=== PATIENT | female | born 1995 | race Caucasian/White ===

== ENCOUNTER 2018-09-17 16:26 | Emergency (ER) | payer MEDICAID ==
[~2018-09-17] VITALS: Ht 154.9 cm; Wt 97.5 kg
[2018-09-17 16:48] VITALS: BP 112/82
--- NOTE | 2018-09-17 16:50 | Emergency Room Report ---
History of Present Illness General Chief Complaint: Upper Respiratory Illness Present Illness HPI 23-year-old female patient presents the ER with multiple complaints. Complaining of cough with sputum. Denies chest pain or shortness of breath. Reports history of asthma, states has not had to use asthma inhaler. Reports is been taking Sudafed one time for relief of symptoms. Denies recent travel outside the country. Denies hemoptysis. Denies calf pain. Denies history of heart disease or heart attack. Also complaining of possible bug bites on legs and inguinal region. States is been present for the past several days. Did not see bug. Reports mild drainage occurred at the left inguinal region. Denies bleeding. Reports pain and pruritus at site of bug bites. Denies other aggravating or relieving factors. Reports history of smoking cigarettes and marijuana, denies IV drug use. Allergies: Coded Allergies: CEFIXIME (Verified Allergy, Severe, Hives, 09/17/18) Patient History Past Medical History: see triage record Last Menstrual Period: 2 weeks Now: No Reviewed Nursing Documentation: PMH: Agreed; PSxH: Agreed Review of Systems All Other Systems: negative except mentioned in HPI Physical Exam Vital Signs Date Time Temp Pulse Resp B/P (MAP) Pulse Ox O2 Delivery O2 Flow Rate FiO2 09/17/18 16:28 98.2 84 18 112/82 95 Room Air Sp02 EP Interpretation: reviewed, normal General Appearance: well appearing, no apparent distress, alert, GCS 15, non- toxic Head: normocephalic, atraumatic Eyes: bilateral eye normal inspection, bilateral eye PERRL ENT: hearing grossly normal, normal pharynx, no angioedema, normal voice, TMs + canals normal, uvula midline, moist mucus membranes Neck: full range of motion, no meningismus, no bony tend Respiratory: lungs clear, normal breath sounds, no rhonchi, no respiratory distress, no accessory muscle use, no wheezing, speaking full sentences Cardiovascular #1: regular rate, rhythm, no edema Musculoskeletal: back normal, digits/nails normal, gait/station normal, normal range of motion, non-tender Neurologic: alert, oriented x3, responsive, motor strength/tone normal, sensory intact Psychiatric: mood/affect normal Skin: other - Small macules with mild surrounding erythema, no edema, no fluctuance, induration, no red streaking, no drainage, scabbing and crusting noted, excoriations noted Medical Decision Making PA Attestation Dr. Bauer is my supervising Physician whom patient management has been discussed with. Diagnostic Impression: Primary Impression: Upper respiratory infection Additional Impressions: Abscess Cellulitis ER Course Pt. presents to the ED c/o bug bite and cough. Ddx considered but are not limited to atopic dermatitis, bug bite, urticaria, allergic reaction, influenza, viral URI, pneumonia, strep throat, rhinitis, sinusitis, otitis media, otitis externa. Vital signs: are WNL, pt. is afebrile ER COURSE: Lungs clear to auscultation, no wheezes, rhonci or rales. patient afebrile. Does not require breathing treatment at this time. Advised to use inhaler if breathing symptoms arise. CXR shows no acute disease per the preliminary reading, no consolidation consistent with pneumonia, does not require antibiotics at this time. Likely viral etiology of symptoms. Advised patient against smoking and drug use. Symptomatic treatment. drink plenty of fluids. Salt water gargles for sore throat. Followup with PCP for further treatment and/or referral as needed. Physical exam consistent with localized infection secondary to likely bug bites. Will provide patient with antibiotics to cover for infection. Low suspicion for scabies. Multiple bone metastases noted, largest in left inguinal thigh, small amount of induration noted, does not require I&D at this time, will treat with outpatient therapy. Patient reports previously drained at home, do not believe patient would benefit from I&D in the ER, advised patient on warm compresses, follow-up in 2-3 days for wound check. Do not scratch or itch. Will provide topical steroid to help with itching symptoms. Do not scratch, apply cool compresses to affected area. Take Claritin during the day and Benadryl at night for itching symptoms. Followup with PCP and request referral to derm. ER precautions given. DISCHARGE: At this time pt. is stable for d/c to home. Patient resting comfortably, in no acute distress, nontoxic appearing. Care plan and follow up instructions have been discussed with the patient prior to discharge. Patient provided with printed patient care instructions, and any necessary prescriptions. Patient instructed to follow-up with primary care provider in 3 - 5 days. Patient questions asked and answered. Patient reports understanding and agreement to treatment plan. ER precautions given. Patient instructed to return to ER immediately for any new or worsening of symptoms including but not limited to increasing SOB, persistent fever. - Please note that this Emergency Department Report was dictated using [employer] and receiving associate technology software, occasionally this can lead to erroneous entry secondary to interpretation by the dictation equipment. Chest X-Ray Diagnostic Results Chest X-Ray Diagnostic Results : Chest X-Ray Ordered: Yes # of Views/Limited/Complete: 1 View Indication: Chest Pain EP Interpretation: Yes PA Xray: Interpretation reviewed, by supervising MD, and agrees with findings. Interpretation: no consolidation, no effusion, no pneumothorax, no acute cardiopulmonary disease Impression: No acute disease MARGARET ScribElizabeth Martins PA-C Last Vital Signs Date Time Temp Pulse Resp B/P (MAP) Pulse Ox O2 Delivery O2 Flow Rate FiO2 09/17/18 16:28 98.2 84 18 112/82 95 Room Air Status: improved Disposition: HOME, SELF-CARE Condition: Stable Scripts Hydrocortisone/Aloe Vera 1%* (HYDROCORTISONE-ALOE 1% CREAM*) Y Cr 1 APPLIC TOPIC Q6H PRN for Itching, #30 GM Prov: Dalton Martins 09/17/18 Ibuprofen* (MOTRIN*) 600 Mg Tablet 600 MG ORAL Q8H PRN for For Pain, #30 TAB 0 Refills Prov: Dalton Martins 09/17/18 Bacitracin/Polymyxin B Sulfate (BACITRACIN-POLYMYXIN OINTMENT) 28.35 Gm Oint...g. 1 APPLIC TP BID, #28 GM Prov: Dalton Martins 09/17/18 Trimethoprim/Sulfamethoxazole 160/800* (BACTRIM DS TABLET*) 1 Each Tablet 1 TAB ORAL TWICE A DAY for 7 Days, #14 TAB Prov: Dalton Martins 09/17/18 Patient Instructions: Abscess, [id number], Cellulitis, [id number], Upper Respiratory Infection, Adult Additional Instructions: Followup with primary care provider or return to ER in 2-3 days for wound check. Request referral to dermatology as needed. Do not scratch or itch. Apply warm compresses. SE Benadryl drowsiness, do not take prior to drinking, driving, operating heavy machinery. Take Claritin during the day and Benadryl at night for itching symptoms. Patient questions asked and answered. ER precautions given, patient instructed to return to ER immediately for any new or worsening of symptoms. [facility] Dalton Martins Sep 17, 2018 16:50
[2018-09-17] MEDS ORDERED: BACITRACIN-P28.35 GM TP (17:17)
[2018-09-17] MEDS ORDERED: IBUPROFEN600 MG ORAL (17:17)
[2018-09-17] MEDS ORDERED: HYDROCORTISONE-30 GM TOPIC (17:17)
[2018-09-17] MEDS ORDERED: BACTRIM DS TAB1 EAC1 ORAL (17:17)
[2018-09-17 17:20] VITALS: BP 116/84
--- NOTE | 2018-09-18 14:18 | Diagnostic Imaging Report ---
Indication: Cough Technique: One view of the chest Comparison: none Findings: Lungs and pleural spaces are clear. Heart size is normal Impression: No acute process
== END 2018-09-17 17:24 | disposition home or self-care (01) ==
LOC: EMR 17:04
DX: J06.9 Acute upper respiratory infection, unspecified (principal); L02.214 Cutaneous abscess of groin; L02.416 Cutaneous abscess of left lower limb; L03.319 Cellulitis of trunk, unspecified; L03.116 Cellulitis of left lower limb; Z88.1 Allergy status to other antibiotic agents
CPT/HCPCS: 71045; 99283